=== PATIENT | male | born 1945 | race Caucasian/White ===

== ENCOUNTER 2019-12-18 12:55 | Inpatient (IN) | payer MEDICARE, MEDICAID, SELFPAY ==
[2019-12-18] VITALS (21 sets, daily range): BP systolic 89–180; BP diastolic 60–101; PULSE 73–94; RESP 0–18; TEMP 36.7–37.1; O2SAT 88–94; BMI 18.7
--- NOTE | 2019-12-18 12:55 | XRR_ITS ---
PROCEDURE INFORMATION: Exam: XR Chest, 1 View Exam date and time: 12/18/2019 1:21 PM Age: 74 years old Clinical indication: Other: Stroke like symptoms; Patient HX: PT unable to answer questions for history; Additional info: CVA TECHNIQUE: Imaging protocol: XR of the chest Views: Frontal portable supine view of the chest. COMPARISON: CR Chest 1 [place] [id number] 05/08/2019 9:33 AM FINDINGS: Tubes, catheters and devices: EKG leads are present overlying the right lower chest. Lungs: Left mid lung zone calcified pulmonary parenchymal granuloma. The lungs are otherwise peripherally clear bilaterally. Pleural space: No pleural effusion. No pneumothorax. Heart/Mediastinum: Mediastinum: Stable. 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 Bones/joints: Stable. XR/XR chest 1V portable [id number] IMPRESSION: Stable appearance compared to the prior study.
--- NOTE | 2019-12-18 12:56 | ECG_ITS ---
[facility] Test Date: 2019-12-18 Pat Name: Vicente Horta Department: Room: Gender: Male Practice Managers: : 1945 Requested By: She Gibbs Order Number: [id number] Kelsey MD: Jason Stoner M.D. Measurements Intervals [place] Rate: 83 P: 71 IA: 175 QRS: 70 QRSD: 94 T: 80 QT: 388 QTc: 458 Interpretive Statements SINUS RHYTHM NONSPECIFIC T-WAVE ABNORMALITY Compared to ECG 05/08/2019 09:33:28 No significant changes Electronically Signed On 12-19-2019 15:59:56 CDT by Jason Stoner M.D. [id number]
--- NOTE | 2019-12-18 12:56 | CT_ITS ---
WS: [id number] CT HEAD TECHNIQUE: Noncontrast CT of the head obtained from the skullbase to the vertex. CLINICAL INFORMATION: cva symptoms COMPARISON: None. DLP: 1573.[address] scans at [facility] use at least one of these dose optimization techniques: automat ed exposure control; mA and/or kV adjustment per patient size (includes targeted exams where dose is matched to clinical indication); or iterative reconstruction. FINDINGS: No evidence of intracranial hemorrhage or mass effect. Ventricular system and basal cisterns are swenson nt. Advanced small vessel changes with moderate parenchymal volume loss. Numerous chronic lacunar inf arcts in the right mullins radiata and bilateral thalami. Vascular calcification. Chronic lacunar infa rcts in the hector and left cerebellum. Paranasal sinuses and mastoid air cells are well aerated. .Normal visualized soft tissues. Notified She Flores at 12/18/2019 1:[address]/CT head wo con* [id number] IMPRESSION: 1. No evidence of intracranial hemorrhage or mass effect. 2. Advanced small vessel changes with moderate parenchymal volume loss. 3. Numerous chronic lacunar infarcts involving the bilateral mullins radiata, b ilateral thalami, and hector. 4. No acute intracranial findings.
--- NOTE | 2019-12-18 12:56 | CT_ITS ---
WS: [id number] CTA HEAD AND NECK TECHNIQUE: Contrast enhanced CTA of the head and neck with coronal and sagittal reformatted images an d maximum intensity projection (MIP) images. NASCET criteria utilized. CLINICAL INFORMATION: cva symptoms COMPARISON: None. DLP: 1582.[address] scans at [facility] use at least one of these dose optimization techniques: automat ed exposure control; mA and/or kV adjustment per patient size (includes targeted exams where dose is matched to clinical indication); or iterative reconstruction. FINDINGS: RIGHT: Right common carotid artery is patent. Mild calcified atheromatous disease right proximal ICA. No flow-limiting stenosis. ICA is patent to the skull base. Tortuous right cervical ICA. LEFT: Left common carotid artery is patent. Moderate calcified atheromatous disease left carotid bulb extending into the ICA. Left ICA is patent to the skull base. Chronic emphysematous changes in the lung apices. Thyroid gland is normal. Mastoid air cells well aer ated. Mild mucosal thickening in the paranasal sinuses. Mild cervical curve convex left. Moderate spo ndylitic changes cervical spine. INTRACRANIAL CTA: Codominant and patent vertebral arteries bilaterally. Basilar artery is patent. Normal vascularity to the PRESSURE TANK OPERATOR territory bilaterally. Mild cavernous carotid atheromatous disease. Normal vascularity to the TRISTIAN and MCA territories bilate rally. No evidence of high-grade proximal stenosis or aneurysm. Patent anterior communicating artery IMPRESSION: 1. Mild to moderate calcified atheromatous disease both carotid bulbs extending into the ICA. No sig nificant cervical ICA stenosis. 2. Unremarkable intracranial CTA. Normal [place]. No flow-limiting intracranial stenosis. 3. Codominant and patent vertebral arteries bilaterally. Proximal basilar artery is patent. 4. No other significant findings. Notified She Flores at 12/18/2019 2:41 PM.
[2019-12-18 13:18] LABS: Basophils % 0.4 %; Eosinophils # 0.4 10^3/uL (0.0-0.8); Eosinophils % 4.4 %; Hematocrit 41.8 % (42.0-52.0); Lymphocytes # 2.1 10^3/uL (0.8-4.8); Lymphocytes % 20.9 %; Mean Corpuscular HGB Conc 31.1 g/dL (30.0-36.0); Mean Corpuscular Hemoglobin 27.8 pg (28.0-34.0); Mean Corpuscular Volume 89.3 fL (80-94); Mean Platelet Volume 10.6 fL (7.4-10.4); Monocytes # 0.5 10^3/uL (0.2-0.9); Monocytes % 5.2 %; Neutrophils # 6.76 10^3/uL (1.8-7.7); Neutrophils % 68.8 %; Nucleated Red Blood Cells % 0 %; Platelet Count 197 10^3/cmm (130-400); Red Blood Count 4.68 10^6/uL (4.1-5.3); Red Cell Distribution Width 13.3 % (12.1-15.1); White Blood Count 9.8 10^3/uL (4.0-10.0)
--- NOTE | 2019-12-18 13:18 | W.ED.NEUROSD ---
HPI - Neuro Symptoms/Deficit General: Chief Complaint: Neuro Symptoms/Deficit Stated Complaint: STROKE ALERT Time Seen by Provider: 12/18/19 12:55 Source: patient, family and EMS Mode of arrival: EMS Limitations: altered mental status History of Present Illness: HPI Narrative: Mr. Horta is a 74-year-old male who was brought in as a stroke alert by [facility]. He was picked up at [facility] and brought here for evaluation. retirement stated to EMS and when we called them that he was seen at 1045 or sometime between 1045 and 11 in his normal state of health and then at 11 AM with difficulty speaking and right-sided facial droop. The patient is a difficult historian and examination secondary to his severe aphasia and chronic contractures from dementia. In route EMS notes a blood sugar of 85 and stable vital signs. The patient is unable to communicate any desires or help give any history. Information is taken from EMS, alf and his who is present here. Review of Systems General: Reports: ROS unobtainable due to medical condition (ROS believed to be negative other than as noted in HPI.) PFSH ED PFSH: Medical History AAA (abdominal aortic aneurysm) Alzheimer's dementia BPH (benign prostatic hyperplasia) CVA (cerebral vascular accident) Depression Dysphagia Hyperlipidemia Spinal stenosis TIA (transient ischemic attack) Surgical History Previous back surgery Family History Father Stroke Mother Stroke Social History Smoking and tobacco status: former smoker NIH stroke score NIHSS: Level Of Consciousness - 1a: 0 Level Of Consciousness Questions - 1b: One Correct Level Of Consciousness Commands - 1c: One Correct Best Gaze - 2: Normal Facial Palsy - 4: Minor Paralysis Motor Arm Right - 5: Drift Motor Arm Left - 5: Drift Sensory - 8: Normal Best Language - 9: Severe Aphasia Dysarthia - 10: Mild/Moderate Dysarthia Extinction And Inattention - 11: 0 Physical Exam Const: EXAM LIMITATIONS: altered mental status GENERAL APPEARANCE: ill appearing NUTRITIONAL APPEARANCE: cachectic and thin ORIENTATION/CONSCIOUSNESS: Yes awake and Yes oriented to person HENMT: COMMON NORMALS: normocephalic, atraumatic, external ears normal, EAC's normal and Normal external nose present HEAD & SCALP: normal to inspection, normocephalic and atraumatic FACE & SINUS: normal facial exam and face symmetric NOSE: Normal external nose present and Normal nares present EXTERNAL EAR: Yes external ears normal EXTERNAL AUDITORY CANAL: EAC's normal MOUTH: Normal oral and palatal mucosa present, lip normal and tongue normal Eye: COMMON NORMALS: Equal, round and reactive pupils present and conjunctivae normal GENERAL EYE: appearance normal, both eyes and all related structures ALIGNMENT: Yes alignment normal PERIORBITAL: periorbital findings normal EYELID: eyelids normal CONJUNCTIVA: Yes conjunctivae normal SCLERA: sclerae normal PUPIL: Yes Equal, round and reactive pupils present Neck/C-Spine: COMMON NORMALS: full ROM, no lymphadenopathy, supple, no meningeal signs and no JVD GENERAL: Yes normal visual inspection and Yes trachea midline Chest: COMMONS NORMALS: normal inspection of the chest and normal palpation of entire chest wall Resp: COMMON NORMALS: normal respiratory effort, No retractions and No use of accessory muscles EFFORT & INSPECTION: Yes able to speak in complete sentences and Yes symmetric chest movement AUSCULTATION: no crackles, no rales, rhonchi and no wheezes Cardio: COMMON NORMALS: no JVD, regular rate, regular rhythm, S1 normal heart sound present and S2 normal heart sound present RATE: regular rate RHYTHM: regular rhythm HEART SOUNDS: S1 normal heart sound present, S2 normal heart sound present, no click, no gallops, no murmurs, no rubs and abnormal split S2 GI: COMMON NORMALS: Soft to palpation and No hepatosplenomegaly present PALPATION: Yes Soft to palpation, No Tenderness to palpation present (GI), No Guarding due to palpation present (GI), No Rigid due to palpation, Yes No hepatosplenomegaly present, No Hernia present, No Palpable mass present and No Pulsatile mass present : COMMON NORMALS: Yes no CVA tenderness BLADDER/KIDNEY EXAM: Yes no CVA tenderness Back/Pelvis: COMMON NORMALS: no CVA tenderness, thoracic and lumbar spine normal to inspection, no thoracic nor lumbar tenderness and thoraco-lumbar ROM normal Extremity: COMMON NORMALS: capillary refill normal, no joint enlargement, no clubbing, cyanosis or edema and no calf tenderness NARRATIVE EXTREMITY EXAM: Bilateral flexion contractures at the hips and knees. Neuro: COMMON NORMALS: no sensory deficits noted SENSORIUM/ORIENTATION: Yes oriented to person MENINGEAL SIGNS: Yes no meningeal signs Skin: COMMON NORMALS: no rashes or lesions noted, turgor normal, no jaundice, no petechiae and no mottling GENERAL SKIN EXAM: no rashes or lesions noted and turgor normal Course ED course: 1326 -Case discussed with Dr. Jovel at [facility] he will evaluate the patient via telemedicine consult. 1339 -Case again discussed with Dr. Jovel and he agrees the patient is a difficult historian and examination but concurs that there is likely a stroke occurring and would like to start TPA. He agrees that the patient is likely not a interventional candidate secondary to his leg contractures and they will not be able to get access for intervention. He does believe a CTA head and neck though would be beneficial to help with prognosis. Vital Signs: Vital signs: Vital Signs Temperature 98.0 F 12/18/19 13:08 Pulse Rate 74 12/18/19 14:55 Respiratory Rate 13 12/18/19 14:55 Blood Pressure 128/79 12/18/19 14:55 Pulse Oximetry 93 12/18/19 14:55 MDM - Neuro Symptoms/Deficit MDM Narrative: Medical decision making narrative: Mr. Horta is a 74-year-old male who comes in with strokelike symptoms with at least a NIH stroke scale of 9. This was confirmed by Dr. Jovel, please see his note for details and his specific findings. He did recommend giving TPA and the wanted to proceed with this. The patient is not a interventional candidate. At this time the family wants to stay here even though they know it is more beneficial at this time to be transferred as we have no neurology coverage in-house and no neurosurgical coverage. Nonetheless they want to stay and be admitted here. I have reviewed this case in its entirety with Dr. Whitehead who is agreeable to admission. Further care will be dictated by him in the ICU. Departure -just prior to the patient going to the ICU he seemed improved with increased ability to speak. Overall his symptoms are not dramatically improved but he had made slight improvement. He denied any complaints of pain. Vital signs were stable. Lab Data: Attestation: I reviewed the patient's lab results. Labs: Lab Results 12/18/19 12/18/19 12/18/19 Range/Units 12:30 12:30 12:30 WBC 9.8 (4.0-10.0) 10^3/ uL RBC 4.68 (4.1-5.3) 10^6/u L Hgb 13.0 (11.7-16.6) g/dL Hct 41.8 L (42.0-52.0) % MCV 89.3 (80-94) fL MCH 27.8 L (28.0-34.0) pg MCHC 31.1 (30.0-36.0) g/dL RDW 13.3 (12.1-15.1) % Plt Count 197 (130-400) 10^3/c mm MPV 10.6 H (7.4-10.4) fL Neut % (Auto) 68.8 % Lymph % (Auto) 20.9 % [place] % (Auto) 5.2 % Eos % (Auto) 4.4 % Baso % (Auto) 0.4 % Neut # (Auto) 6.76 (1.8-7.7) 10^3/u L Lymph # (Auto) 2.1 (0.8-4.8) 10^3/u L [place] # (Auto) 0.5 (0.2-0.9) 10^3/u L Eos # (Auto) 0.4 (0.0-0.8) 10^3/u L Baso # (Auto) 0.0 (0.0-0.1) 10^3/u L Nucleated RBC % (a uto) 0 % Nucleated RBCs # 0.0 /100WBC PT Cancelled INR Cancelled APTT Cancelled Sodium 139 (136-145) mmol/L Potassium 3.5 (3.5-5.1) mmol/L Chloride 93 L (98-107) mmol/L Carbon Dioxide 34 H (22-29) mmol/L Anion Gap 15.5 (5-19) BUN 11 (8-23) mg/dL Creatinine 0.8 (0.7-1.2) mg/dL GFR Calculation Not Reportable Glucose 82 (65-115) mg/dL POC Glucose (70-110) mg/dL Calculated Osmolal ity 283 L (285-295) mOsm/k g Calcium 8.7 (8.5-10.5) mg/dL Magnesium 2.0 (1.7-2.3) mg/dL Total Bilirubin 0.4 (0.15-1.2) mg/dL AST 93 H (0-40) U/L ALT 13 (0-41) U/L Alkaline Phosphata se 49 (40-130) IU/L Troponin T Baselin e (0-15) ng/L Total Protein 6.9 (6.6-8.7) g/dL Albumin 3.8 (3.5-5.2) g/dL Globulin 3.1 (1.3-4.6) g/dL Urine Color (Yellow) Urine Appearance (CLEAR) Urine pH (5-7) Ur Specific Gravit y (1.005-1.030) Urine Protein (Negative) Urine Glucose (UA) (Normal) Urine Ketones (Negative) Urine Blood (Negative) Urine Nitrate (Negative) Urine Bilirubin (NEGATIVE) Urine Urobilinogen (Negative) mg/dL Ur Leukocyte Sandy ase (Negative) Urine RBC (0-2) /hpf Urine WBC (0-5) /hpf Ur Squamous Epith Cells (0-5) Amorphous Sediment Urine Bacteria (NONE) 12/18/19 12/18/19 12/18/19 Range/Units 12:30 13:16 13:32 WBC (4.0-10.0) 10^3/ uL RBC (4.1-5.3) 10^6/u L Hgb (11.7-16.6) g/dL Hct (42.0-52.0) % MCV (80-94) fL MCH (28.0-34.0) pg MCHC (30.0-36.0) g/dL RDW (12.1-15.1) % Plt Count (130-400) 10^3/c mm MPV (7.4-10.4) fL Neut % (Auto) % Lymph % (Auto) % [place] % (Auto) % Eos % (Auto) % Baso % (Auto) % Neut # (Auto) (1.8-7.7) 10^3/u L Lymph # (Auto) (0.8-4.8) 10^3/u L [place] # (Auto) (0.2-0.9) 10^3/u L Eos # (Auto) (0.0-0.8) 10^3/u L Baso # (Auto) (0.0-0.1) 10^3/u L Nucleated RBC % (a uto) % Nucleated RBCs # /100WBC PT 13.40 H INR 0.99 APTT 20.2 L Sodium (136-145) mmol/L Potassium (3.5-5.1) mmol/L Chloride (98-107) mmol/L Carbon Dioxide (22-29) mmol/L Anion Gap (5-19) BUN (8-23) mg/dL Creatinine (0.7-1.2) mg/dL GFR Calculation Glucose (65-115) mg/dL POC Glucose 76 (70-110) mg/dL Calculated Osmolal ity (285-295) mOsm/k g Calcium (8.5-10.5) mg/dL Magnesium (1.7-2.3) mg/dL Total Bilirubin (0.15-1.2) mg/dL AST (0-40) U/L ALT (0-41) U/L Alkaline Phosphata se (40-130) IU/L Troponin T Baselin e 33 H (0-15) ng/L Total Protein (6.6-8.7) g/dL Albumin (3.5-5.2) g/dL Globulin (1.3-4.6) g/dL Urine Color (Yellow) Urine Appearance (CLEAR) Urine pH (5-7) Ur Specific Gravit y (1.005-1.030) Urine Protein (Negative) Urine Glucose (UA) (Normal) Urine Ketones (Negative) Urine Blood (Negative) Urine Nitrate (Negative) Urine Bilirubin (NEGATIVE) Urine Urobilinogen (Negative) mg/dL Ur Leukocyte Sandy ase (Negative) Urine RBC (0-2) /hpf Urine WBC (0-5) /hpf Ur Squamous Epith Cells (0-5) Amorphous Sediment Urine Bacteria (NONE) 12/18/19 Range/Units 13:57 WBC (4.0-10.0) 10^3/ uL RBC (4.1-5.3) 10^6/u L Hgb (11.7-16.6) g/dL Hct (42.0-52.0) % MCV (80-94) fL MCH (28.0-34.0) pg MCHC (30.0-36.0) g/dL RDW (12.1-15.1) % Plt Count (130-400) 10^3/c mm MPV (7.4-10.4) fL Neut % (Auto) % Lymph % (Auto) % [place] % (Auto) % Eos % (Auto) % Baso % (Auto) % Neut # (Auto) (1.8-7.7) 10^3/u L Lymph # (Auto) (0.8-4.8) 10^3/u L [place] # (Auto) (0.2-0.9) 10^3/u L Eos # (Auto) (0.0-0.8) 10^3/u L Baso # (Auto) (0.0-0.1) 10^3/u L Nucleated RBC % (a uto) % Nucleated RBCs # /100WBC PT INR APTT Sodium (136-145) mmol/L Potassium (3.5-5.1) mmol/L Chloride (98-107) mmol/L Carbon Dioxide (22-29) mmol/L Anion Gap (5-19) BUN (8-23) mg/dL Creatinine (0.7-1.2) mg/dL GFR Calculation Glucose (65-115) mg/dL POC Glucose (70-110) mg/dL Calculated Osmolal ity (285-295) mOsm/k g Calcium (8.5-10.5) mg/dL Magnesium (1.7-2.3) mg/dL Total Bilirubin (0.15-1.2) mg/dL AST (0-40) U/L ALT (0-41) U/L Alkaline Phosphata se (40-130) IU/L Troponin T Baselin e (0-15) ng/L Total Protein (6.6-8.7) g/dL Albumin (3.5-5.2) g/dL Globulin (1.3-4.6) g/dL Urine Color [place] (Yellow) Urine Appearance Cloudy (CLEAR) Urine pH 8 H (5-7) Ur Specific Gravit y 1.010 (1.005-1.030) Urine Protein 1+ H (Negative) Urine Glucose (UA) Norm (Normal) Urine Ketones Negative (Negative) Urine Blood 2+ H (Negative) Urine Nitrate Positive H (Negative) Urine Bilirubin 1+ H (NEGATIVE) Urine Urobilinogen 4 H (Negative) mg/dL Ur Leukocyte Sandy ase 2+ H (Negative) Urine RBC 0-4 H (0-2) /hpf Urine WBC Too numerous to c nt H (0-5) /hpf Ur Squamous Epith Cells 0-4 H (0-5) Amorphous Sediment Not Reportable Urine Bacteria 1+ H (NONE) Imaging Data^: CT Head: Radiologist's impression: [address] [place] [address] CT Scan Report Signed Patient: Vicente Horta Unit #: [id number] : 1945 Age/Sex: 74 / M ADM Date: 12/18/19 Loc: ER Room/Bed: Attending Dr: Ordering Provider/Ordering MD: She Flores DO Date of Service: 12/18/19 Procedure(s): CT head wo con* [id number] Accession Number(s): [id number] Report Number: [id number] WS: [id number] CT HEAD TECHNIQUE: Noncontrast CT of the head obtained from the skullbase to the vertex. CLINICAL INFORMATION: cva symptoms COMPARISON: None. DLP: 1573.[address] scans at [facility] use at least one of these dose optimization techniques: automated exposure control; mA and/or kV adjustment per patient size (includes targeted exams where dose is matched to clinical indication); or iterative reconstruction. FINDINGS: No evidence of intracranial hemorrhage or mass effect. Ventricular system and basal cisterns are patent. Advanced small vessel changes with moderate parenchymal volume loss. Numerous chronic lacunar infarcts in the right mullins radiata and bilateral thalami. Vascular calcification. Chronic lacunar infarcts in the hector and left cerebellum. Paranasal sinuses and mastoid air cells are well aerated. .Normal visualized soft tissues. Notified She Flores at 12/18/2019 1:[address]/CT head wo con* [id number] IMPRESSION: 1. No evidence of intracranial hemorrhage or mass effect. 2. Advanced small vessel changes with moderate parenchymal volume loss. 3. Numerous chronic lacunar infarcts involving the bilateral mullins radiata, bilateral thalami, and hector. 4. No acute intracranial findings. Dictated By: Rahul Pond MD Signed By: Rahul Pond MD Signed Date/Time: 12/18/19 1321 DD/ 1310 CXR: My impression: No acute cardiopulmonary findings. EKG Data^: EKG 1: Attestation: I personally reviewed and interpreted this EKG as follows: EKG interpretation date: 12/18/19 EKG interpretation time: 13:14 Interpretation: Normal sinus rhythm at 85 beats a minute, nonspecific ST-T wave changes. Normal axis. No blocks, normal intervals. EKG 2: Attestation: I personally reviewed and interpreted this EKG as follows: EKG interpretation date: 12/18/19 EKG interpretation time: 15:00 Interpretation: Normal sinus rhythm at 84 beats a minute, no acute ST or T wave changes. Discharge Plan Discharge Patient Disposition: Admitted As Inpatient Admit Provider: Mark Espinosa Clinical Impression: Acute UTI Cerebrovascular accident Qualifiers: CVA mechanism: unspecified Qualified Code(s): I63.9 - Cerebral infarction, unspecified Condition: Stable Coding Level of Care Code ED Brick Baker for g Fwd Exam Comprehensive
[2019-12-18 13:21] LABS: Glucose Point of Care 76 mg/dL (70-110)
[2019-12-18 13:37] LABS: Alanine Aminotransferase 13 U/L (0-41); Albumin Level 3.8 g/dL (3.5-5.2); Alkaline Phosphatase 49 IU/L (40-130); Aspartate Amino Transferase 93 U/L (0-40); Blood Urea Nitrogen 11 mg/dL (8-23); Calcium 8.7 mg/dL (8.5-10.5); Carbon Dioxide 34 mmol/L (22-29); Chloride 93 mmol/L (98-107); Globulin 3.1 g/dL (1.3-4.6); Glucose 82 mg/dL (65-115); Osmolality Calculated 283 mOsm/kg (285-295); Sodium 139 mmol/L (136-145); Total Bilirubin 0.4 mg/dL (0.15-1.2); Total Protein 6.9 g/dL (6.6-8.7)
[2019-12-18 13:38] LABS: Troponin(5th) Baseline 33 ng/L (0-15)
[2019-12-18] MEDS: labetalol 5 mg/mL SDV 20mL 10 MG IVP (13:40)
[2019-12-18 13:42] LABS: Anion Gap 15.5 (5-19); Potassium 3.5 mmol/L (3.5-5.1)
--- NOTE | 2019-12-18 13:42 | PC.NURSE ---
blood glucose at 1316 was 76, ER doctor and stroke nurse were notified
[2019-12-18 13:58] LABS: INR 0.99 (0.8-1.2); Partial Thromboplastin Time 20.2 SECONDS (23.9-36.7)
[2019-12-18 14:11] LABS: Bilirubin Urine 1+ (NEGATIVE); Blood Urine 2+ (Negative); Glucose Urine UA Norm (Normal); Ketones Urine Negative (Negative); Leukocyte Esterase Urine 2+ (Negative); Nitrate Urine Positive (Negative); Protein Urine 1+ (Negative); Urine Appearance Cloudy (CLEAR); Urine Color Amber (Yellow); Urobilinogen Urine 4 mg/dL (Negative); pH Urine 8 (5-7)
[2019-12-18] MEDS: iohexol 350 mg/mL 100 mL Btl IV (14:12)
[2019-12-18 14:16] LABS: RBC Urine 0-4 /hpf (0-2)
[2019-12-18 14:17] LABS: Add Urine Culture? Yes; Bacteria Urine 1+; Squamous Epithelial Cell Urine 0-4 (0-5); WBC Urine TOO NUMEROUS TO CNT /hpf (0-5)
--- NOTE | 2019-12-18 14:32 | PC.NURSE ---
TPA Patient and agree to receive TPA at 1340. Dr. Flores explained all risks and benefits with patient and .
--- NOTE | 2019-12-18 14:38 | PC.NURSE ---
NIHSS Patient scores 9, chronic bilateral leg contracture noted and not scored.
--- NOTE | 2019-12-18 14:41 | PC.NURSE ---
Stroke EDU Patient and educated on stroke, risk factors, goals, TPA, CT/CTA. and also wish [place] [facility] [place] Flores explained risks of staying [place] [facility] [place] or inhouse neurology. gives verbal understanding.
--- NOTE | 2019-12-18 14:56 | ECG_ITS ---
[facility] Test Date: 2019-12-18 Pat Name: Vicente Horta Department: Room: ICU11 Gender: Male Safety Analyst: : 1945 Requested By: She Gibbs Order Number: [id number] Kelsey MD: Jason Stoner M.D. Measurements Intervals [place] Rate: 84 P: 77 NM: 183 QRS: 69 QRSD: 89 T: 82 QT: 390 QTc: 462 Interpretive Statements SINUS RHYTHM NONSPECIFIC ST & T-WAVE ABNORMALITY Compared to ECG 12/18/2019 13:14:26 No significant changes Electronically Signed On 12-19-2019 16:11:15 CDT by Jason Stoner M.D. [email or web address]
[2019-12-18] MEDS: cefTRIAXone 1,000 MG in sodium chloride 0.9% (plus) 50 ML 100 MG IV (15:08)
[2019-12-18 15:36] LABS: Troponin 5 2HR 33.99 ng/L (0-15); Troponin 5 2HR Delta 0.99 ABS# (0-10)
--- NOTE | 2019-12-18 16:24 | PM.HP ---
Providers/Chief Complaint Admitting Physician: Mark Espinosa Chief Complaint: STROKE ALERT History of Present Illness Vicente Horta is a 74 year old gentleman, senior living resident with history of dementia, history of past CVA, reports as recently as last August, with for CVA 10-11 years ago, also history of single seizure probably about February last year treated with Keppra, without recurrence, with history of HTN, BPH, other chronic medical problems, was noted around 11 AM to have severe dysarthria, right facial droop, aphasia, with last known well around 1045. He was assessed in ER with finding of NIH stroke scale score of 9, was assessed by stroke team, without any bleed on CT of the head, but with noted numerous chronic lacunar infarcts involving bilateral mullins radiata, bilateral thalami and hector, his was interested in pursuing treatment with TPA. CTA head and neck were obtained, with finding of mild to moderate calcified atheromatous disease of both carotid bulbs extending into the ICA. No significant ICA stenosis. Unremarkable intracranial CTA. He is currently awake, alert after TPA, blood pressure was transiently elevated, however, during our visit was down to 139/85. He denies any pain at this time. When asked if he knows why he is in the hospital states the same thing . After TPA he has persistent right facial droop. Dysarthria. A aphasia. He does not follow commands well, and so difficult to examine. He is moving all extremities spontaneously. Power otherwise in upper and lower extremities appears to be symmetrical. He denies sensory deficits. He appears to perhaps have some neglect, although this is difficult to examine. He does know he is in the hospital. He does not recall the year. He does recognize his . His states that he is at baseline bed or wheelchair bound. States that he may or may not know the date. States that he has had some a aphasia chronically, although this is significantly worse than usual. He needs usually assistance with feeding. She states that he does take some dysphagia diet at the senior living. Review of Systems General: Reports: ROS unobtainable due to medical condition Medications/Allergies Home Medications Medication Instructions Recorded Confirmed Last Taken Type Med Plus See Rx Instructions .ROUTE .COMPLEX 12/18/19 12/18/19 Unknown History Pyridium 1 tab PO BID 12/18/19 12/18/19 Unknown History acetaminophen [Tylenol Arthritis 1,300 mg PO BEDTIME 12/18/19 12/18/19 Unknown History Pain] acetaminophen [Tylenol] 650 mg PO Q4H PRN 12/18/19 12/18/19 Unknown History aspirin [Aspir-81] 81 mg PO DAILY 12/18/19 12/18/19 Unknown History bisacodyl 10 mg MT DAILY PRN 12/18/19 12/18/19 Unknown History clonidine 1 patch TRANSDERMAL Q7D 12/18/19 12/18/19 Unknown History cyproheptadine 2 mg PO BID 12/18/19 12/18/19 Unknown History levetiracetam [Keppra] 500 mg PO BID 12/18/19 12/18/19 Unknown History magnesium hydroxide [Milk of 30 ml PO DAILY PRN 12/18/19 12/18/19 Unknown History Magnesia] memantine 5 mg PO DAILY 12/18/19 12/18/19 Unknown History methocarbamol 750 mg PO BID 12/18/19 12/18/19 Unknown History sertraline 100 mg PO QAM 12/18/19 12/18/19 Unknown History tamsulosin [Flomax] 0.4 mg PO DAILY 12/18/19 12/18/19 Unknown History Allergies Allergy/AdvReac Type Severity Reaction Status Date / Time galantamine Allergy Unknown Verified 12/18/19 14:59 PFSH Acute PFSH: Medical History AAA (abdominal aortic aneurysm) Alzheimer's dementia BPH (benign prostatic hyperplasia) CVA (cerebral vascular accident) Depression Dysphagia Hyperlipidemia Spinal stenosis TIA (transient ischemic attack) Surgical History Previous back surgery Family History Father Stroke Mother Stroke Social History Smoking and tobacco status: former smoker Vitals/I&O/Wt Last Vital Signs Temp 98.0 F 12/18/19 13:08 Pulse 74 12/18/19 14:55 Resp 13 12/18/19 14:55 BP 128/79 12/18/19 14:55 Pulse Ox 93 12/18/19 14:55 12/18/19 12/18/19 12/18/19 06:59 14:59 22:59 Intake Total 100 / 100 Balance 100 / 100 Weight last 48 hrs Weight 62.596 kg Physical Exam Const: COMMON NORMALS: no acute distress and alert; negative for patient oriented x3 ORIENTATION/CONSCIOUSNESS: Yes oriented to person and Yes oriented to place HENMT: COMMON NORMALS: oropharynx normal Neck/C-Spine: COMMON NORMALS: no JVD Resp: COMMON NORMALS: normal respiratory effort and clear to auscultation bilaterally AUSCULTATION: clear to auscultation bilaterally and rhonchi Cardio: COMMON NORMALS: no JVD, regular rhythm, S1 normal heart sound present, S2 normal heart sound present and No murmurs present (Cardio) RHYTHM: regular rhythm HEART SOUNDS: S1 normal heart sound present and S2 normal heart sound present GI: COMMON NORMALS: Normal to inspection, nondistended, normoactive bowel sounds present, Soft to palpation and non-tender PALPATION: Yes Soft to palpation Extremity: COMMON NORMALS: no joint enlargement and no pedal edema Neuro: COMMON NORMALS: moves all extremities SENSORIUM/ORIENTATION: Yes alert (Takes him a long time to comprehend and answer questions.) MENINGEAL SIGNS: Yes no meningeal signs CRANIAL NERVES: Yes other (R side facial droop ) COORDINATION/BALANCE: No wvzzrj-bw-buiv test normal (poorly following commands) SPEECH: abnormal speech Details: slurred and stuttering GAIT: Yes Unable to assess gait SENSORY EXAM: Yes other (reports symmetrical) MOTOR EXAM: Other motor observations present (3/5 throughout) Skin: COMMON NORMALS: no rashes or lesions noted GENERAL SKIN EXAM: no rashes or lesions noted OTHER: 2cm shallow skin tear L hip covered by tegaderm Data : 12/18/19 12:30 12/18/19 12:30 A&P Assessment and plan (1) Cerebrovascular accident: Multiple past lacunar CVA in bilateral mullins radiata, bilateral thalami, hector. He is at baseline aspirin. Not manager contact for medicine. Has history of hypertension. denies history of diabetes. History of CVA in both his parents. CT of the head without bleed. Received TPA. Admission requested to our ICU. Will monitor blood pressure. At this time hold aspirin. We will start statin. He does have significant facial droop, dysarthria, and is having some difficult time clearing secretions, although does cough them up when he tries. Prescription with his , at the senior living he has been maintained on dysphagia diet. Discussed that difficulty with swallowing, and risk of aspiration would be big concerns currently. Will maintain him n.p.o. at this time. Will get speech therapy assessment. reports that the facial droop, as well as the severity of aphasia are new. Dysarthria is new. Appears to also have disconjugate gaze, and closing the right eye. Once she is able to start antiplatelets, would resume aspirin, consider addition of Plavix. Statin. CTA without significant carotid stenosis, but does have bilateral plaques in carotid bulbs. Monitor telemetry. TTE. Status: Acute Qualifiers: CVA mechanism: unspecified Qualified Code(s): I63.9 - Cerebral infarction, unspecified (2) Acute UTI: According to urinalysis. He is not able to give a good review of systems. At this time started on antibiotic. Follow urine culture which is been collected. Status: Acute Additional A&P Information History of seizure: Continue Keppra, will transition to IV. Other chronic medical conditions: For now we will hold his oral medications until he can be assessed by speech therapy. Bedbound/wheelchair bound at baseline Chronic aphasia HTN HLD Reported AAA BPH Depression Attestations Medical Necessity Statement*: Admission of over 2 midnights is been needed for assessment of management of acute CVA, status post TPA, UTI, initial man with prior CVA, multiple underlying morbidities. Coding Level of Care Code Acute Geosciences Associate Professor for Douglas Marcelino Diagnoses Cerebrovascular accident I63.9 CVA mechanism: unspecified Acute UTI N39.0
[2019-12-18 18:01] LABS: Estmated Average Glucose 120; Hemoglobin A1C 5.8 % (4.0-6.0)
[2019-12-18] MEDS: sodium chloride 0.9% 1,000 ML 75 ML IV (18:21)
--- NOTE | 2019-12-18 18:33 | PC.NURSE ---
unable to communicate very well. diffcult to do nihhss. follows with eyes and wafer fabrication operator
--- NOTE | 2019-12-18 18:56 | ECG_ITS ---
[facility] Test Date: 2019-12-18 Pat Name: Vicente Horta Department: Room: ICU11 Gender: Male Bulldozer/Loader/Compactor/Scraper: : 1945 Requested By: She Gibbs Order Number: [id number] Kelsey MD: Jason Stoner M.D. Measurements Intervals Gering Rate: 85 P: 50 SC: 182 QRS: 48 QRSD: 90 T: 78 QT: 387 QTc: 460 Interpretive Statements SINUS RHYTHM NONSPECIFIC T-WAVE ABNORMALITY Compared to ECG 12/18/2019 15:00:56 No significant changes Electronically Signed On 12-19-2019 16:14:55 CDT by Jason Stoner M.D. [email or web address]
[2019-12-18 20:07] LABS: Troponin 5 6HR 34.24 ng/L (0-15); Troponin 5 6HR Delta 1.24 ng/L (0-12)
[2019-12-19] VITALS (36 sets, daily range): BP systolic 91–164; BP diastolic 56–107; PULSE 71–93; RESP 5–27; TEMP 37.1–37.3; O2SAT 92–100; BMI 19.0
[2019-12-19 04:29] LABS: Basophils % 0.4 %; Eosinophils # 0.3 10^3/uL (0.0-0.8); Eosinophils % 2.7 %; Hematocrit 36.3 % (42.0-52.0); Hemoglobin 11.1 g/dL (11.7-16.6); Lymphocytes # 1.8 10^3/uL (0.8-4.8); Lymphocytes % 17.2 %; Mean Corpuscular HGB Conc 30.6 g/dL (30.0-36.0); Mean Corpuscular Hemoglobin 27.2 pg (28.0-34.0); Mean Platelet Volume 9.6 fL (7.4-10.4); Monocytes # 0.7 10^3/uL (0.2-0.9); Monocytes % 6.9 %; Neutrophils # 7.38 10^3/uL (1.8-7.7); Neutrophils % 72.5 %; Nucleated Red Blood Cells % 0 %; Platelet Count 213 10^3/cmm (130-400); Red Blood Count 4.08 10^6/uL (4.1-5.3); Red Cell Distribution Width 13.5 % (12.1-15.1); White Blood Count 10.2 10^3/uL (4.0-10.0)
[2019-12-19 04:46] LABS: Anion Gap 12.3 (5-19); Blood Urea Nitrogen 11 mg/dL (8-23); Carbon Dioxide 33 mmol/L (22-29); Chloride 97 mmol/L (98-107); Glucose 95 mg/dL (65-115); Osmolality Calculated 284 mOsm/kg (285-295); Potassium 3.3 mmol/L (3.5-5.1); Sodium 139 mmol/L (136-145)
[2019-12-19] MEDS: sodium chloride 0.9% 1,000 ML 75 ML IV ×2 (05:09→18:28)
--- NOTE | 2019-12-19 07:00 | USCV_ITS ---
Vicente Horta Age: 74 Gender: M : 1945 Exam Date: 12/19/2019 06:21 Ordering Phys: Mark Espinosa MD Technologist: Scar Vasquez [place] [facility] [place]: CVA BP: 105 / 60 HR: 87 Rhythm: Sinus Technical Quality: Technically difficult study MEASUREMENTS (Male / Female) Normal Values 2D ECHO LV Ejection Fraction MOD 2C 46.9 % LV Ejection Fraction 2C AL 46.2 % LA Diameter 3.6 cm LA Width 3.1 cm LA Height 3.3 cm RA Width 2.9 cm RA Height 3.2 cm M-MODE LV Diastolic Diameter MM 5.3 cm 4.2 - 5.9 / 3.9 - 5.3 cm LV Systolic Diameter MM 3.8 cm LV Ejection Fraction MM Teich 55.6 % IVS Diastolic Thickness MM 1.5 cm 0.6 - 1.0 / 0.6 - 0.9 cm IVS Systolic Thickness MM 1.8 cm LVPW Diastolic Thickness MM 1.5 cm 0.6 - 1.0 / 0.6 - 0.9 cm LVPW Systolic Thickness MM 2.0 cm RV Diastolic Diameter MM 1.8 cm Aortic Annulus Diameter 3.8 cm LA Ao Ratio MM 1.0 MV E Point Septal Separation 0.6 cm DOPPLER AV Peak Velocity 106.0 cm/s LVOT Peak Velocity 93.0 cm/s MV Area PHT 5.0 cm squared Mitral E to A Ratio 0.7 MV E' Velocity 11.0 cm/s Mitral E to MV E' Ratio 6.8 Mitral E to LV E' Lateral Ratio 5.8 Mitral E to LV E' Septal Ratio 8.3 TR Peak Velocity 196.0 cm/s TR Peak Gradient 15.3 mmHg Right Atrial Pressure 3.0 mmHg Pulmonary Artery Systolic Pressu 18.4 mmHg FINDINGS Left Ventricle Mild diffuse hypokinesia of the left ventricle with ejection fraction of 47%.Grade I/IV diastolic dysfunction (abnormal relaxation filling pattern), normal to mildly elevated filling pressures. Technically difficult study-no parasternal windows Right Ventricle The right ventricle is normal in size and function. Right Atrium The right atrium is normal in size. Left Atrium The left atrium is normal in size. Mitral Valve Thickened mitral valve. Aortic Valve Thickened aortic valve. Tricuspid Valve Thickened tricuspid valve. Trace tricuspid valve regurgitation. Pulmonic Valve Pulmonic valve not well visualized. Pericardium Trivial pericardial effusion. Aorta Normal ascending aorta dimension. CONCLUSIONS Mild diffuse hypokinesia of the left ventricle with ejection fraction of 47%. Grade I/IV diastolic dysfunction (abnormal relaxation filling pattern), normal to mildly elevated filling pressures. Thickened aortic and mitral valves. Thickened tricuspid valve. Trace tricuspid valve regurgitation. Technically difficult study. No parasternal windows. No previous studies available for comparison Dr Husam Giron MD FACC (Electronically Signed) Final Date: 19 December 2019 18:53 S
[2019-12-19] MEDS: sodium chloride 0.9% 250 ML 999 ML IV (08:00)
--- NOTE | 2019-12-19 08:47 | PM.PN ---
Subjective Subjective: Interval history: Today he is less responsive, he wakes up easily, raises his head, makes eye contact, however, does not appear to understand what is spoken to him, does not answer questions or follow commands. Does not appear in distress. Vitals/I&O/Wt Last Vital Signs Temp 98.8 F 12/18/19 21:57 Pulse 78 12/19/19 07:51 Resp 16 12/19/19 04:30 BP 100/61 12/19/19 04:30 Pulse Ox 96 12/19/19 07:51 12/18/19 12/19/19 12/19/19 22:59 06:59 14:59 Intake Total 105 / 205 810 / 1015 Balance 105 / 205 810 / 1015 Weight last 48 hrs Weight 63.503 kg Weight 62.596 kg Physical Exam Const: COMMON NORMALS: no acute distress and alert GENERAL APPEARANCE: frail appearing ORIENTATION/CONSCIOUSNESS: Yes confused HENMT: COMMON NORMALS: oropharynx normal Neck/C-Spine: COMMON NORMALS: no meningeal signs and no JVD Resp: COMMON NORMALS: normal respiratory effort and clear to auscultation bilaterally AUSCULTATION: clear to auscultation bilaterally and rhonchi Cardio: COMMON NORMALS: no JVD, regular rhythm, S1 normal heart sound present, S2 normal heart sound present and No murmurs present (Cardio) RHYTHM: regular rhythm HEART SOUNDS: S1 normal heart sound present and S2 normal heart sound present GI: COMMON NORMALS: Normal to inspection, nondistended, normoactive bowel sounds present, Soft to palpation and non-tender PALPATION: Yes Soft to palpation Extremity: COMMON NORMALS: no joint enlargement and no pedal edema Neuro: COMMON NORMALS: moves all extremities SENSORIUM/ORIENTATION: Yes alert MENINGEAL SIGNS: Yes no meningeal signs CRANIAL NERVES: Yes other (R side facial droop ) SPEECH: abnormal speech Details: complete aphasia (Although appears completely confused, so difficult to assess) GAIT: Yes Unable to assess gait SENSORY EXAM: Yes other (He did not provide any information today) MOTOR EXAM: Other motor observations present (Cannot get him to follow commands today) Skin: COMMON NORMALS: no rashes or lesions noted GENERAL SKIN EXAM: no rashes or lesions noted OTHER: Shallow wounds on bilateral hips Data : 12/19/19 04:10 12/19/19 04:10 Micro: Microbiology 12/18/19 13:57 Urine Culture - Preliminary Urine,Clean Catch Gram Negative Rods A&P Assessment and plan (1) Cerebrovascular accident: This morning he wakes up, but is not responsive to questions, commands. Appears to be making eye contact, but otherwise confused. Suspect possible acute encephalopathy secondary to urinary tract infection. At this time cannot exclude some worsening symptoms secondary to his CVA. Definitely less animated than yesterday. This is reported how he has remained after arriving in the ICU. Overnight has not been hypertensive, blood pressures more in the soft side today. Continues on gentle IV hydration. Given his fall 250 mill normal saline bolus. At this time will continue n.p.o. Continue to reassess mental status, as well as if improves needs speech therapy assessment. Continue care in ICU for now. Reassessments. Later tonight may be will to initiate antiplatelet medication HI. For now cannot take any other oral medications. Multiple past lacunar CVA in bilateral mullins radiata, bilateral thalami, hector. He is at baseline aspirin. Not investigation division captain for medicine. Has history of hypertension. denies history of diabetes. History of CVA in both his parents. I do not see atrial fibrillation on his grip wrapper. Discussed with his concern is possibly for small atheroemboli. Once she is able to start antiplatelets, would resume aspirin, consider addition of Plavix. Statin. CTA without significant carotid stenosis, but does have bilateral plaques in carotid bulbs. Not a surgical candidate. Monitor telemetry. TTE. Status: Acute Qualifiers: CVA mechanism: unspecified Qualified Code(s): I63.9 - Cerebral infarction, unspecified (2) Acute UTI: According to urinalysis. He is not able to give a good review of systems. For now continues on Rocephin. Follow urine culture which is been collected. Status: Acute Additional A&P Information Hypokalemia: Mild. Requested replacement. History of seizure: Continue Keppra, transitioned to IV for the time being. Other chronic medical conditions: For now we will hold his oral medications until he can be assessed by speech therapy. Bedbound/wheelchair bound at baseline Chronic aphasia HTN HLD Reported AAA BPH Depression Attestations Medical Necessity Statement*: Continue admission for assessment management of acute CVA, UTI. Coding Level of Care Code Acute Senior Contract Specialist for Douglas Marcelino Diagnoses Cerebrovascular accident I63.9 CVA mechanism: unspecified Acute UTI N39.0
[2019-12-19] MEDS: potassium chloride premix 40 MEQ/100 ML PREMIX 25 MEQ IV (09:32)
--- NOTE | 2019-12-19 10:06 | PC.CHAP ---
Pastoral Care Encounter/Spiritual Assessment Type of Contact [] Declined spring upholsterer visit [] Patient/Family/Request visit [] Outpatient visit [] Follow-up visit [] Physician referral [] Code/Alert [x] Routine visit [] Staff referral [] Actively dying [] Patient sleeping [] Family support [] [] Out of room [] Palliative care [] [] Receiving care in room [] Pre-surgical visit [] Trauma [] Long length of stay [] ICU visit [] Other: Relational/Emotional Strength [] Patient feels connected with others/family/visitors/staff [] Distress [] Loneliness/isolation [] Abandonment Spirituality of Patient [] Person of Stefanie [] Attends Restorationism of their Stefanie [] Believes in Prayer [] Reads Bible or Hindu materials [] There are Spiritual issues to be addressed Pantograph Ii Engraver Interventions [x] Prayer [] Active listening [x] Non-anxious presence [x] Spiritual/emotional support [] Crisis/trauma care [] Spiritual counseling [] Bereavement support [] Provided bereavement packet [] Provided Bible/devotional materials [] Provided toy/stuffed animal, coloring book to patient or family member [] Provided Communion [] Anointing/[place] [] Salvation [x] Completed spiritual assessment [] Other: Impact on Illness or Injury [] Angry [] Fearful [] Anxious [] Often cries [] Exhaustion [] Unable to work [] Unable to attend restoration [] Unable to walk/stand [] Unable to read [] Unable to drive [] Unable to eat/drink [] Unable to sleep [] Unable to be with family [] Patient intubated [] Other: Summary Patient unable to speak, or respond. We prayed together and he knew with his eyes. Time spent with patient 10 min
--- NOTE | 2019-12-19 14:49 | PC.NURSE ---
turns head to verbal stimuli, attempts to loop sewer with BUE weak in both slight stronger in LUE but unable to fully grasp with both, can whisper yes and no at times, shakes head yes and no
[2019-12-19] MEDS: cefTRIAXone 1,000 MG in sodium chloride 0.9% (plus) 50 ML 100 MG IV (15:03)
--- NOTE | 2019-12-19 17:46 | CTR_ITS ---
PROCEDURE INFORMATION: Exam: CT Head Without Contrast Exam date and time: 12/19/2019 5:49 PM Age: 74 years old Clinical indication: Speech disturbance; Unspecified; Patient HX: S/P tpa HX of CVA and alzheimers; Additional info: CVA, tpa TECHNIQUE: Imaging protocol: Computed tomography of the head without contrast. Radiation optimization: All CT scans at this facility use at least one of these dose optimization techniques: automated exposure control; mA and/or kV adjustment per patient size (includes targeted exams where dose is matched to clinical indication); or iterative reconstruction. COMPARISON: CT head wo con* [id number] 12/18/2019 12:53 PM RADIATION DOSE METRICS: Total DLP (mGy-cm): 754.91 FINDINGS: Brain: There is volume loss and periventricular low density compatible with chronic small vessel disease changes. There is no acute hemorrhage, edema or mass effect. Basal ganglia lacunar infarcts are noted. Ventricles: Normal. No ventriculomegaly. Bones/joints: Unremarkable. No acute fracture. Sinuses: There is mild mucosal thickening in the sinuses. Mastoid air cells: Visualized mastoid air cells are well aerated. Soft tissues: Unremarkable. CT/CT head wo con* [id number] IMPRESSION: No acute intracranial abnormality. Radiation Dose CTDIVOL = (mGy): DLP = 754.91 (mGy-cm)
--- NOTE | 2019-12-19 21:14 | PC.NURSE ---
report called to Carmen on med surg floor
[2019-12-19] MEDS: clopidogrel 75 mg Tablet PO (22:30)
[2019-12-19] MEDS: atorvastatin 40 mg Tablet PO (22:30)
[2019-12-19] MEDS: aspirin 81 mg Chew Tablet 162 MG PO (22:30)
[2019-12-20] VITALS (7 sets, daily range): BP systolic 115–159; BP diastolic 70–88; PULSE 67–88; RESP 15–18; TEMP 36.4–37; O2SAT 93–99
[2019-12-20 04:51] LABS: Basophils % 0.5 %; Eosinophils # 0.4 10^3/uL (0.0-0.8); Eosinophils % 4.5 %; Hematocrit 34.2 % (42.0-52.0); Hemoglobin 10.6 g/dL (11.7-16.6); Mean Corpuscular Hemoglobin 27.8 pg (28.0-34.0); Mean Corpuscular Volume 89.8 fL (80-94); Mean Platelet Volume 10.3 fL (7.4-10.4); Monocytes # 0.6 10^3/uL (0.2-0.9); Monocytes % 6.9 %; Neutrophils # 5.34 10^3/uL (1.8-7.7); Neutrophils % 63.9 %; Nucleated Red Blood Cells % 0 %; Platelet Count 212 10^3/cmm (130-400); Red Blood Count 3.81 10^6/uL (4.1-5.3); Red Cell Distribution Width 13.6 % (12.1-15.1); White Blood Count 8.4 10^3/uL (4.0-10.0)
[2019-12-20 05:11] LABS: Blood Urea Nitrogen 12 mg/dL (8-23); Calcium 8.7 mg/dL (8.5-10.5); Carbon Dioxide 30 mmol/L (22-29); Chloride 103 mmol/L (98-107); Glucose 78 mg/dL (65-115); Osmolality Calculated 289 mOsm/kg (285-295); Sodium 142 mmol/L (136-145)
[2019-12-20 05:17] LABS: Anion Gap 13.2 (5-19); Potassium 4.2 mmol/L (3.5-5.1)
[2019-12-20] MEDS: sodium chloride 0.9% 1,000 ML 75 ML IV ×2 (10:40→22:05)
[2019-12-20] MEDS: cefTRIAXone 1,000 MG in sodium chloride 0.9% (plus) 50 ML 100 MG IV (12:53)
--- NOTE | 2019-12-20 18:15 | P.PN_ITS ---
Subjective Subjective: Interval history: When asked if he is doing okay shakes his head no. When asked if he is in pain replies no. Tries to speak, saying what sounds like he is feeling weak, when asked if that is what he says confirms yes. It takes him some time, but does follow commands. Vitals/I&O/Wt Last Vital Signs Temp 97.7 F 12/20/19 15:27 Pulse 77 12/20/19 15:27 Resp 18 12/20/19 15:27 BP 159/88 12/20/19 15:27 Pulse Ox 97 12/20/19 15:27 12/20/19 12/20/19 12/20/19 06:59 14:59 22:59 Intake Total 105 / 1608.75 1100 / 1100 240 / 1340 Output Total 2 / 2 Balance 105 / 1608.75 1098 / 1098 240 / 1338 Weight last 48 hrs Weight 62.505 kg Weight 63.503 kg Physical Exam Const: COMMON NORMALS: no acute distress and alert GENERAL APPEARANCE: frail appearing ORIENTATION/CONSCIOUSNESS: Yes Other orientation findings (Answers few simple questions, although with delay. Follows some simple commands. This appears to be worse than his baseline dementia.) HENMT: COMMON NORMALS: oropharynx normal HEAD & SCALP: other (Facial droop) Neck/C-Spine: COMMON NORMALS: no meningeal signs and no JVD Resp: COMMON NORMALS: normal respiratory effort and clear to auscultation bilaterally AUSCULTATION: clear to auscultation bilaterally and rhonchi Cardio: COMMON NORMALS: no JVD, regular rhythm, S1 normal heart sound present, S2 normal heart sound present and No murmurs present (Cardio) RHYTHM: regular rhythm HEART SOUNDS: S1 normal heart sound present and S2 normal heart sound present GI: COMMON NORMALS: Normal to inspection, nondistended, normoactive bowel sounds present, Soft to palpation and non-tender PALPATION: Yes Soft to palpation Extremity: COMMON NORMALS: no joint enlargement and no pedal edema Neuro: COMMON NORMALS: moves all extremities SENSORIUM/ORIENTATION: Yes alert MENINGEAL SIGNS: Yes no meningeal signs CRANIAL NERVES: Yes other (R side facial droop ) COORDINATION/BALANCE: No [id number] test normal (poorly following commands) SPEECH: abnormal speech Details: garbled and slurred GAIT: Yes Unable to assess gait SENSORY EXAM: Yes other (He did not participate well enough for this exam.) MOTOR EXAM: Other motor observations present (He is generally weak, but did make effort against gravity with his arms. Moved his feet.) COORDINATION: llnabt-wg-eray test abnormal (poorly following commands) Skin: COMMON NORMALS: no rashes or lesions noted GENERAL SKIN EXAM: no rashes or lesions noted OTHER: Shallow wounds on bilateral hips Data : 12/20/19 04:27 12/20/19 04:27 Micro: Microbiology 12/18/19 13:57 Urine Culture - Preliminary Urine Catheterized Gram Negative Rods 12/18/19 13:57 Urine Culture - Final Urine,Clean Catch Proteus mirabilis A&P Assessment and plan (1) Cerebrovascular accident: Yesterday his condition was worse, today he is somewhat more alert, and yesterday actually by the evening did better, so much so that he was able to advance to pur?ed, nectar thick liquids diet. Today did somewhat better, is very slow and eating, but did consume some mashed potatoes, pur?ed meat, grape juice. Did well with any thick liquids. Remains an elevated risk of aspiration. We will add some nutritional shakes due to concern he may not sustain his nutr itional needs. CT of the head repeated last night, started on aspirin. Plavix. Statin due to concern for atheroemboli due to plaque. He is not a candidate for vascular surgery. So far have not seen atrial fibrillation. If mental has remained stable, and oral intake continue, may be able to discharge to longterm. Neck audiogram with EF of about 47%. Does not appear to have significant valv ular abnormality. With the degree of dysphagia, and mental status changes I am not sure that SUN would be a safe test to perform this time. May be considered on follow-up with neurology in office with regards to further evaluation/work- up. Status: Acute Qualifiers: CVA mechanism: unspecified Qualified Code(s): I63.9 - Cerebral i nfarction, unspecified (2) Acute UTI: Proteus mirabilis. Continue Rocephin. Status: Acute Additional A&P Information Hypokalemia: Mild. Requested replacement. History of seizure: Continue Keppra, transitioned to IV for the time being. Other chronic medical conditions: For now we will hold his oral medications until he can be assessed by speech therapy. Bedbound/wheelchair bound at baseline Chronic aphasia HTN HLD Reported AAA BPH Depression Attestations Medical Necessity Statement*: Continue admission for assessment management of acute CVA with severe dysphagia. UTI. Disposition planning. Coding Level of Care Code Acute Deposition Operator for Douglas Marcelino Diagnoses Cerebrovascular accident I63.9 CVA mechanism: unspecified Acute UTI N39.0
[2019-12-20] MEDS: aspirin 81 mg Chew Tablet 162 MG PO (21:53)
[2019-12-20] MEDS: atorvastatin 40 mg Tablet PO (21:54)
[2019-12-20] MEDS: clopidogrel 75 mg Tablet PO (21:54)
[2019-12-21] VITALS (8 sets, daily range): BP systolic 130–177; BP diastolic 72–119; PULSE 73–128; RESP 15–20; TEMP 36.6–37.2; O2SAT 92–97
[2019-12-21 03:57] LABS: Basophils % 0.5 %; Eosinophils # 0.4 10^3/uL (0.0-0.8); Eosinophils % 5.3 %; Hematocrit 35.4 % (42.0-52.0); Lymphocytes # 1.9 10^3/uL (0.8-4.8); Lymphocytes % 24.2 %; Mean Corpuscular HGB Conc 31.1 g/dL (30.0-36.0); Mean Corpuscular Hemoglobin 28.1 pg (28.0-34.0); Mean Corpuscular Volume 90.5 fL (80-94); Mean Platelet Volume 9.7 fL (7.4-10.4); Monocytes # 0.6 10^3/uL (0.2-0.9); Monocytes % 7.5 %; Neutrophils # 4.92 10^3/uL (1.8-7.7); Neutrophils % 62.2 %; Nucleated Red Blood Cells % 0 %; Platelet Count 212 10^3/cmm (130-400); Red Blood Count 3.91 10^6/uL (4.1-5.3); Red Cell Distribution Width 13.3 % (12.1-15.1); White Blood Count 7.9 10^3/uL (4.0-10.0)
[2019-12-21 04:16] LABS: Anion Gap 10.9 (5-19); Blood Urea Nitrogen 9 mg/dL (8-23); Calcium 8.3 mg/dL (8.5-10.5); Carbon Dioxide 30 mmol/L (22-29); Chloride 102 mmol/L (98-107); Creatinine Clr Calc Pharmacy 71.6203; Glucose 80 mg/dL (65-115); Osmolality Calculated 283 mOsm/kg (285-295); Potassium 3.9 mmol/L (3.5-5.1); Sodium 139 mmol/L (136-145)
[2019-12-21] MEDS: sodium chloride 0.9% 1,000 ML 75 ML IV (11:03)
--- NOTE | 2019-12-21 11:31 | PC.CHAP ---
Pastoral Care Encounter/Spiritual Assessment Type of Contact [] Declined segmental paving supervisor visit [] Patient/Family/Request visit [] Outpatient visit [X] Follow-up visit [] Physician referral [] Code/Alert [X] Routine visit [] Staff referral [] Actively dying [] Patient sleeping [] Family support [] [] Out of room [] Palliative care [] [] Receiving care in room [] Pre-surgical visit [] Trauma [] Long length of stay [] ICU visit [] Other: Relational/Emotional Strength [] Patient feels connected with others/family/visitors/staff [] Distress [] Loneliness/isolation [] Abandonment Spirituality of Patient [] Person of Stefanie [] Attends Uatsdin of their Stefanie [] Believes in Prayer [] Reads Bible or Baptism materials [] There are Spiritual issues to be addressed Pepper Picker Interventions [X] Prayer [] Active listening [] Non-anxious presence [] Spiritual/emotional support [] Crisis/trauma care [] Spiritual counseling [] Bereavement support [] Provided bereavement packet [] Provided Bible/devotional materials [] Provided toy/stuffed animal, coloring book to patient or family member [] Provided Communion [] Anointing/Waterman [] Salvation [] Completed spiritual assessment [] Other: Impact on Illness or Injury [] Angry [] Fearful [] Anxious [] Often cries [] Exhaustion [] Unable to work [] Unable to attend rastafari [] Unable to walk/stand [] Unable to read [] Unable to drive [] Unable to eat/drink [] Unable to sleep [] Unable to be with family [] Patient intubated [] Other: Summary: Extremely difficult to communicate with patient, but he seemed to be accepting of my offer to pray. Offered prayer. Time spent with patient: < 5mins
--- NOTE | 2019-12-21 11:33 | DCPLANNER ---
Updated IM and explained IM to Spouse; Isis via the phone. Copy left at bedside as agreed.
--- NOTE | 2019-12-21 13:01 | PM.PN ---
Subjective Subjective: Interval history: Today he had an episode of aspiration with speech therapy. During my visit she is awake, alert, denies any pain or discomfort. With a aphasia communication is impaired, however, is able to tell me his name, knows he is in the hospital and that he had a stroke. Does not remember the year. Is generally weak, but does follow some basic commands. Vitals/I&O/Wt Last Vital Signs Temp 98.7 F 12/21/19 12:00 Pulse 73 12/21/19 12:00 Resp 20 H 12/21/19 12:00 BP 166/82 12/21/19 12:00 Pulse Ox 96 12/21/19 12:00 12/20/19 12/21/19 12/21/19 22:59 06:59 14:59 Intake Total 1201.25 / 2301.25 972.5 / 972.5 Output Total 2 / Balance 1201.25 / 2299.25 970.5 / 970.5 Weight last 48 hrs Weight 63.049 kg Weight 62.505 kg Physical Exam Const: COMMON NORMALS: no acute distress and alert GENERAL APPEARANCE: frail appearing ORIENTATION/CONSCIOUSNESS: Yes Other orientation findings (Answers simple questions, although with delay. Follows some simple commands. This appears to be worse than his baseline dementia.) HENMT: COMMON NORMALS: oropharynx normal HEAD & SCALP: other (Facial droop) Neck/C-Spine: COMMON NORMALS: no meningeal signs and no JVD Resp: COMMON NORMALS: normal respiratory effort and clear to auscultation bilaterally AUSCULTATION: clear to auscultation bilaterally and rhonchi Cardio: COMMON NORMALS: no JVD, regular rhythm, S1 normal heart sound present, S2 normal heart sound present and No murmurs present (Cardio) RHYTHM: regular rhythm HEART SOUNDS: S1 normal heart sound present and S2 normal heart sound present GI: COMMON NORMALS: Normal to inspection, nondistended, normoactive bowel sounds present, Soft to palpation and non-tender PALPATION: Yes Soft to palpation Extremity: COMMON NORMALS: no joint enlargement and no pedal edema Neuro: COMMON NORMALS: moves all extremities SENSORIUM/ORIENTATION: Yes alert MENINGEAL SIGNS: Yes no meningeal signs CRANIAL NERVES: Yes other (R side facial droop ) COORDINATION/BALANCE: No [id number] test normal (poorly following commands) SPEECH: abnormal speech Details: garbled and slurred GAIT: Yes Unable to assess gait SENSORY EXAM: Yes other (He did not participate well enough for this exam.) MOTOR EXAM: Other motor observations present (He is generally weak, but did make effort against gravity with his arms. Moved his feet.) COORDINATION: [id number] test abnormal (poorly following commands) Skin: COMMON NORMALS: no rashes or lesions noted GENERAL SKIN EXAM: no rashes or lesions noted OTHER: Shallow wounds on bilateral hips Data : 12/21/19 03:31 12/21/19 03:31 Micro: Microbiology 12/18/19 13:57 Urine Culture - Final Urine Catheterized Proteus mirabilis 12/18/19 13:57 Urine Culture - Final Urine,Clean Catch Proteus mirabilis A&P Assessment and plan (1) Cerebrovascular accident: Today noted significant episode of aspiration, although at this time still saturating on room air. Requires continued monitoring. Requires reassessment by speech therapy to determine whether a safe oral intake regimen can in fact be established. Could not reach his for an update today. Left message with daughter who says will let her know to call us back. Remains an elevated risk of aspiration. Added some nutritional shakes due to concern he may not sustain his nutritional needs. CT of the head repeated last night, started on aspirin. Plavix. Statin due to concern for atheroemboli due to plaque. He is not a candidate for vascular surgery. So far have not seen atrial fibrillation. If mental has remained stable, and oral intake continue, may be able to discharge to [facility]. Echocardiogram with EF of about 47%. Does not appear to have significant valvular abnormality. With the degree of dysphagia, and mental status changes I am not sure that SUN would be a safe test to perform this time. May be considered on follow-up with neurology in office with regards to further evaluation/work-up. Status: Acute Qualifiers: CVA mechanism: unspecified Qualified Code(s): I63.9 - Cerebral infarction, unspecified (2) Acute UTI: Proteus mirabilis. Continue Rocephin for now. Status: Acute Additional A&P Information Hypokalemia: Mild. Requested replacement. History of seizure: Continue Keppra, transitioned to IV for the time being. Other chronic medical conditions: Number of his chronic medications are still held until he can safely establish oral intake. Bedbound/wheelchair bound at baseline Chronic aphasia HTN HLD Reported AAA BPH Depression Attestations Medical Necessity Statement*: Continue admission for assessment following CVA, severe dysphagia, speech therapy reassessment to help determine ability for oral intake and goals of care. Due to unreliable oral intake, for now requiring continuation of IV antibiotic for UTI. Coding Level of Care Code Acute Offset Second Press Operator for Douglas Marcelino Diagnoses Cerebrovascular accident I63.9 CVA mechanism: unspecified Acute UTI N39.0
[2019-12-21] MEDS: cefTRIAXone 1,000 MG in sodium chloride 0.9% (plus) 50 ML 100 MG IV (14:32)
[2019-12-21] MEDS: ondansetron 2 mg/ML SDV 2 mL 4 MG IVP (16:45)
--- NOTE | 2019-12-21 16:54 | ECG_ITS ---
[facility] Test Date: 2019-12-21 Pat Name: Vicente Horta Department: Room: 276 Gender: Male Hotel Server: : 1945 Requested By: Mark Espinosa Order Number: [id number] Kelsey MD: Husam Giron M.D. Measurements Intervals [place] Rate: 107 P: 65 WA: 182 QRS: 5 QRSD: 77 T: 85 QT: 324 QTc: 433 Interpretive Statements SINUS TACHYCARDIA LEFT VENTRICULAR HYPERTROPHY AND ST-T CHANGE [VOLTAGE CRITERIA PLUS ST/T ABNORMALITY] Some nonspecific T wave changes Compared to ECG 12/18/2019 18:15:00 Left ventricular hypertrophy now present ST (T wave) deviation now present Sinus rhythm no longer present T-wave abnormality no longer present Electronically Signed On 12-22-2019 9:42:14 CDT by Husam Giron M.D. [email or web address] medical centerQcept [email or web address] health [email or web address].[email or web address]/[id number]
[2019-12-21] MEDS: labetalol 5 mg/mL SDV 20mL 10 MG IVP (17:08)
[2019-12-21] MEDS: clopidogrel 75 mg Tablet PO (20:29)
[2019-12-21] MEDS: atorvastatin 40 mg Tablet PO (20:29)
[2019-12-22] VITALS (8 sets, daily range): BP systolic 108–148; BP diastolic 72–100; PULSE 78–97; RESP 16–20; TEMP 36.8–37.7; O2SAT 90–97
[2019-12-22] MEDS: sodium chloride 0.9% 1,000 ML 75 ML IV ×2 (00:56→13:17)
[2019-12-22 04:10] LABS: Basophils % 0.3 %; Eosinophils # 0.1 10^3/uL (0.0-0.8); Eosinophils % 0.6 %; Hematocrit 39.8 % (42.0-52.0); Hemoglobin 12.4 g/dL (11.7-16.6); Lymphocytes # 1.7 10^3/uL (0.8-4.8); Lymphocytes % 16.2 %; Mean Corpuscular HGB Conc 31.2 g/dL (30.0-36.0); Mean Corpuscular Hemoglobin 27.4 pg (28.0-34.0); Mean Corpuscular Volume 87.9 fL (80-94); Mean Platelet Volume 9.2 fL (7.4-10.4); Monocytes # 0.9 10^3/uL (0.2-0.9); Monocytes % 8.9 %; Neutrophils # 7.55 10^3/uL (1.8-7.7); Neutrophils % 73.7 %; Nucleated Red Blood Cells % 0 %; Platelet Count 236 10^3/cmm (130-400); Red Blood Count 4.53 10^6/uL (4.1-5.3); Red Cell Distribution Width 13.2 % (12.1-15.1); White Blood Count 10.2 10^3/uL (4.0-10.0)
[2019-12-22 04:31] LABS: Anion Gap 16.9 (5-19); Blood Urea Nitrogen 10 mg/dL (8-23); Calcium 8.5 mg/dL (8.5-10.5); Carbon Dioxide 28 mmol/L (22-29); Chloride 101 mmol/L (98-107); Glucose 97 mg/dL (65-115); Osmolality Calculated 290 mOsm/kg (285-295); Potassium 3.9 mmol/L (3.5-5.1); Sodium 142 mmol/L (136-145)
[2019-12-22] MEDS: aspirin 300 mg Supp PR (09:18)
--- NOTE | 2019-12-22 12:12 | PC.SLP ---
Two attempts have been made to reassess patient for his swallowing function. Both times, the patient was soundly asleep and could not be awakened.
--- NOTE | 2019-12-22 13:10 | PC.NURSE ---
rcvd call from patient's requesting update.
[2019-12-22] MEDS: cefTRIAXone 1,000 MG in sodium chloride 0.9% (plus) 50 ML 100 MG IV (13:16)
--- NOTE | 2019-12-22 20:29 | PM.PN ---
Subjective Subjective: Interval history: Chart reviewed, scrunched up at the upper half of the bed, tries to track me around the room but otherwise non-communicative during my encounter. Per nursing report had another episode of aspiration today, will need reevaluation by speech therapy tomorrow. Hemodynamically stable, afebrile, on room air. Medications: Reviewed: Yes Medication Review Details: Active Medications Generic Name Dose Route Start Last Admin Trade Name Freq PRN Reason Stop Dose Admin Aspirin 300 mg 12/22/19 09:00 12/22/19 09:18 Aspirin IN 300 mg DAILY KELLIE Administration Atorvastatin Calci um 40 mg 12/19/19 21:00 12/22/19 19:23 Lipitor PO Not Given BEDTIME KELLIE Bisacodyl 10 mg 12/19/19 22:11 Bisac-Evac IN DAILY PRN Constipation Clopidogrel Bisulf ate 75 mg 12/19/19 20:30 12/22/19 19:23 Plavix PO Not Given Q24H KELLIE Sodium Chloride 1,000 mls @ 75 ml s/hr 12/18/19 16:45 12/22/19 13:17 Sodium Chloride 0.9% IV 75 mls/hr .[id number] KELLIE Administration Levetiracetam 500 mg/ Sodium 105 mls @ 420 mls /hr 12/18/19 17:15 12/22/19 16:58 Chloride IV 420 mls/hr Q12H KELLIE Administration Ceftriaxone Sodium 1,000 mg/ 50 mls @ 100 mls/ hr 12/19/19 14:30 12/22/19 13:16 Sodium Chloride IV 100 mls/hr Q24H KELLIE Administration Protocol Ondansetron HCl 4 mg 12/18/19 16:45 12/21/19 16:45 Zofran IVP 4 mg Q6H PRN Administration NAUSEA AND VOMITI NG galantamine Allergy (Verified 12/18/19 14:59) Unknown Vitals/I&O/Wt Last Vital Signs Temp 98.4 F 12/22/19 19:39 Pulse 86 12/22/19 19:39 Resp 17 12/22/19 19:39 BP 139/88 12/22/19 19:39 Pulse Ox 90 12/22/19 19:39 12/22/19 12/22/19 12/22/19 06:59 14:59 22:59 Intake Total 1105 / 2232.5 926.25 / 926.25 Balance 1105 / 2230.5 926.25 / 926.25 Weight last 48 hrs Weight 60.101 kg Weight 63.049 kg Physical Exam Const: COMMON NORMALS: no acute distress and alert GENERAL APPEARANCE: cooperative, comfortable, frail appearing and appears older than stated age NUTRITIONAL APPEARANCE: thin ORIENTATION/CONSCIOUSNESS: Yes awake HENMT: COMMON NORMALS: normocephalic, atraumatic, hearing grossly normal bilaterally and moist oral mucous membranes HEAD & SCALP: normocephalic and atraumatic OTHER: -noted horizontal nystagmus Eye: COMMON NORMALS: Equal, round and reactive pupils present, EOMs intact bilaterally and conjunctivae normal CONJUNCTIVA: Yes conjunctivae normal PUPIL: Yes Equal, round and reactive pupils present Neck/C-Spine: GENERAL: Yes normal visual inspection and Yes trachea midline Resp: COMMON NORMALS: normal respiratory effort, No retractions, No use of accessory muscles and clear to auscultation bilaterally EFFORT & INSPECTION: Yes symmetric chest movement AUSCULTATION: clear to auscultation bilaterally OTHER: -on RA Cardio: COMMON NORMALS: regular rate, regular rhythm, S1 normal heart sound present, S2 normal heart sound present and No murmurs present (Cardio) RATE: regular rate RHYTHM: regular rhythm HEART SOUNDS: S1 normal heart sound present and S2 normal heart sound present GI: COMMON NORMALS: Normal to inspection, nondistended, normoactive bowel sounds present, Soft to palpation and non-tender PALPATION: Yes Soft to palpation Extremity: COMMON NORMALS: no clubbing, cyanosis or edema and no pedal edema NARRATIVE EXTREMITY EXAM: -unable to determine movement of extremities as laying in position in bed Neuro: SENSORIUM/ORIENTATION: Yes alert SPEECH: expressive aphasia OTHER: -Unable to determine strength or range of motion of extremities due to position Psych: SPEECH: Yes Other speech symptoms (Aphasic) MOOD & AFFECT: Yes Flat affect present Skin: COMMON NORMALS: no jaundice, no petechiae and no mottling NARRATIVE SKIN EXAM: -seborrheic dermatitis on face Data : 12/22/19 03:57 12/22/19 03:57 A&P Assessment and plan (1) Cerebrovascular accident: -Imaging reviewed including CT head, CTA of the head and neck -Echo limited with ejection fraction of 47%, grade 1 diastolic dysfunction, trace TR -Currently hemodynamically stable, continue to monitor vital signs -Telemetry monitoring -Noted to have at least 2 episodes of overt aspiration including once today, will request reevaluation by speech therapy -On presentation was not considered an appropriate candidate for tPA -on ASA, Plavix, statin -will require outpatient Neurology evaluation -strict fall precautions, limited mobility at baseline, essentially bedbound/wheelchair bound -grossly aphasic Status: Acute Qualifiers: CVA mechanism: unspecified Qualified Code(s): I63.9 - Cerebral infarction, unspecified (2) Acute UTI: -UA indicative of infection -Urine culture grew Proteus mirabilis -On ceftriaxone Status: Acute Additional A&P Information -BPH -reported hx of AAA -HTN; normotensive -Hyperlipidemia; on statin -Depression -Dispo: return to [facility] -Code status: DNR/DNI Attestations Medical Necessity Statement*: Patient requires hospitalization for continued post CVA care with continued concern for aspiration and limited oral intake requiring re-evaluation of dysphagia. Time Spent in Patient Care: Greater than 35 minutes (>than 50% of time spent in counselling and/or direct pt care on unit). Coding Level of Care Code Acute Paraffin Machine Operator for Darrylg Fwd Diagnoses Cerebrovascular accident I63.9 CVA mechanism: unspecified Acute UTI N39.0
[2019-12-23] VITALS (7 sets, daily range): BP systolic 131–174; BP diastolic 86–128; PULSE 78–100; RESP 14–19; TEMP 36.4–36.8; O2SAT 94–97
[2019-12-23] MEDS: sodium chloride 0.9% 1,000 ML 75 ML IV ×2 (04:23→16:44)
--- NOTE | 2019-12-23 07:37 | PC.NURSE ---
Brief changed, X1 void, repositioned patient to alleviate pressure, nods head in agreement, no facial grimace or moaning noted, SCD's in place, call light in reach.
[2019-12-23] MEDS: aspirin 300 mg Supp PR (08:50)
--- NOTE | 2019-12-23 10:15 | PC.NURSE ---
Oral care completed with aspiration precautions, tolerated well.
--- NOTE | 2019-12-23 11:41 | PC.SOCIAL ---
IMM Update Pg. 2 of IMM updated with patient. Copy provided.
--- NOTE | 2019-12-23 14:04 | P.PN_ITS ---
Subjective Subjective: Interval history: Patient remains n.p.o. due to continued risk for aspiration. Re-evaluated by speech therapy and recommended continuation of n.p.o. status due to severity of aspiration risk. Hemodynamically stable, on room air. More alert today, laying in position on his side. Incontinent. Medications: Reviewed: Yes Medication Review Details: Active Medications Generic Name Dose Route Start Last Admin Trade Name Freq PRN Reason Stop Dose Admin Aspirin 300 mg 12/22/19 09:00 12/23/19 08:50 Aspirin FL 300 mg DAILY KELLIE Administration Atorvastatin Calci um 40 mg 12/19/19 21:00 12/22/19 19:23 Lipitor PO Not Given BEDTIME KELLIE Bisacodyl 10 mg 12/19/19 22:11 Bisac-Evac FL DAILY PRN Constipation Clopidogrel Bisulf ate 75 mg 12/19/19 20:30 12/22/19 19:23 Plavix PO Not Given Q24H KELLIE Sodium Chloride 1,000 mls @ 75 ml s/hr 12/18/19 16:45 12/23/19 04:23 Sodium Chloride 0.9% IV 75 mls/hr .[id number] KELLIE Administration Levetiracetam 500 mg/ Sodium 105 mls @ 420 mls /hr 12/18/19 17:15 12/23/19 04:23 Chloride IV 420 mls/hr Q12H KELLIE Administration Ceftriaxone Sodium 1,000 mg/ 50 mls @ 100 mls/ hr 12/19/19 14:30 12/22/19 13:16 Sodium Chloride IV 100 mls/hr Q24H KELLIE Administration Protocol Ondansetron HCl 4 mg 12/18/19 16:45 12/21/19 16:45 Zofran IVP 4 mg Q6H PRN Administration NAUSEA AND VOMITI NG galantamine Allergy (Verified 12/18/19 14:59) Unknown Vitals/I&O/Wt Last Vital Signs Temp 98.3 F 12/23/19 11:22 Pulse 93 12/23/19 11:22 Resp 14 12/23/19 11:22 BP 131/88 12/23/19 11:22 Pulse Ox 96 12/23/19 07:54 12/22/19 12/23/19 12/23/19 22:59 06:59 14:59 Intake Total 105 / 1031.25 1000 / 2031.25 Balance 105 / 1030.999 Weight last 48 hrs Weight 66.678 kg Weight 60.101 kg Physical Exam Const: COMMON NORMALS: no acute distress and alert GENERAL APPEARANCE: coop erative, comfortable, frail appearing and appears older than stated age NUTRITIONAL APPEARANCE: thin ORIENTATION/CONSCIOUSNESS: Yes awake HENMT: COMMON NORMALS: normocephalic, atraumatic, hearing grossly normal bilaterally and moist oral mucous membranes HEAD & SCALP: normocephalic and atraumatic OTHER: -noted horizontal nystagmus Eye: COMMON NORMALS: Equal, round and reactive pupils present, EOMs intact bilaterally and conjunctivae normal CONJUNCTIVA: Yes conjunctivae normal PUPIL: Yes Equal, round and reactive pupils present Neck/C-Spine: GENERAL: Yes normal visual inspection and Yes trachea midline Resp: COMMON NORMALS: normal respiratory effort, No retractions, No use of accessory muscles and clear to auscultation bilaterally EFFORT & INSPECTION: Yes symmetric chest movement AUSCULTATION: clear to auscultation bilaterally OTHER: -on RA Cardio: COMMON NORMALS: regular rate, regular rhythm, S1 normal heart sound present, S2 normal heart sound present and No murmurs present (Cardio) RATE: regular rate RHYTHM: regular rhythm HEART SOUNDS: S1 normal heart sound present and S2 normal heart sound present GI: COMMON NORMALS: Normal to inspection, nondistended, normoactive bowel sounds present, Soft to palpation and non-tender PALPATION: Yes Soft to palpation Extremity: COMMON NORMALS: no clubbing, cyanosis or edema and no pedal edema NARRATIVE EXTREMITY EXAM: -unable to determine movement of extremities as laying in position in bed Neuro: SENSORIUM/ORIENTATION: Yes alert SPEECH: expressive aphasia OTHER: -Unable to determine strength or range of motion of extremities due to position Psych: SPEECH: Yes Other speech symptoms (Aphasic) MOOD & AFFECT: Yes Flat affect present Skin: COMMON NORMALS: no jaundice, no petechiae and no mottling NARRATIVE SKIN EXAM: -seborrheic dermatitis on face Data : 12/22/19 03:57 12/22/19 03:57 A&P Assessment and plan (1) Cerebrovascular accident: -Imaging reviewed including CT head, CTA of the head and neck -Echo limited with ejection fraction of 47%, grade 1 diastolic dysfunction, trace TR -Currently hemodynamically stable, continue to monitor vital signs -Telemetry monitoring -Noted to have at least 2 episodes of overt aspiration; re-evaluation by speech therapy appreciated with recommendation to continue n.p.o. status. Discussed this with and she does not want artificial nutrition including feeding tube placement -On presentation was not considered an appropriate candidate for tPA -on ASA, Plavix, statin -will require outpatient Neurology evaluation -strict fall precautions, limited mobility at baseline, essentially bedbound/wheelchair bound -grossly aphasic Status: Acute Qualifiers: CVA mechanism: unspecified Qualified Code(s): I63.9 - Cerebral infarction, unspecified (2) Acute UTI: -UA indicative of infection -Urine culture grew Proteus mirabilis -On ceftriaxone Status: Acute Additional A&P Information -BPH; incontinent but suspect some retention so will place Burns catheter -reported hx of AAA -HTN; normotensive -Hyperlipidemia; on statin -Depression -Dispo: return to [facility], per discussion with Isis, plan is for return to facility with hospice -Code status: DNR/DNI Attestations Medical Necessity Statement*: Patient requires hospitalization for continued post CVA care with noted significant dysphagia and associated aspiration risk, currently n.p.o. pending appropriate disposition. Time Spent in Patient Care: 16 - 35 minutes (>than 50% of time spent in counselling and/or direct pt care on unit) . Coding Level of Care Code Acute Rod Puller for Douglas Fwd Exam Comprehensive Diagnoses Cerebrovascular accident I63.9 CVA mechanism: unspecified Acute UTI N39.0
[2019-12-23] MEDS: cefTRIAXone 1,000 MG in sodium chloride 0.9% (plus) 50 ML 100 MG IV (14:11)
[2019-12-23 18:00] LABS: Add Urine Microscopic? YES; Bilirubin Urine Neg (NEGATIVE); Blood Urine 3+ (Negative); Glucose Urine UA Norm (Normal); Ketones Urine 2+ (Negative); Leukocyte Esterase Urine 2+ (Negative); Nitrate Urine Negative (Negative); Protein Urine Neg (Negative); Urine Appearance Turbid (CLEAR); Urine Color Yellow (Yellow); Urobilinogen Urine Norm (Negative); pH Urine 6 (5-7)
[2019-12-23 18:42] LABS: Add Urine Culture? Yes; Bacteria Urine 4+; Squamous Epithelial Cell Urine 0-4 (0-5); WBC Urine TOO NUMEROUS TO CNT /hpf (0-5)
[2019-12-23] MEDS: clopidogrel 75 mg Tablet PO (21:15)
[2019-12-23] MEDS: atorvastatin 40 mg Tablet PO (21:15)
[2019-12-24] MEDS: hyDRALAzine 20 mg/mL INJ 1 mL 10 MG IVP (00:14)
[2019-12-24 03:48] VITALS: BP 160/110; PULSE 111; RESP 16; TEMP 36.4; O2SAT 96
[2019-12-24 07:43] VITALS: BP 139/91; PULSE 103; RESP 18; TEMP 36.9; O2SAT 95
[2019-12-24] MEDS: aspirin 300 mg Supp PR (08:18)
[2019-12-24] MEDS: sodium chloride 0.9% 1,000 ML 75 ML IV (08:19)
--- NOTE | 2019-12-24 09:56 | PM.DCS ---
Discharge Providers Date of Admission: 12/18/19 14:41 Date of Discharge: December 24, 2019 Attending Provider at Admission: Mark Espinosa Attending Provider at Discharge: Quiana El MD Consults: None Primary Care Provider: Dr. Baljit Clayton Diagnoses at Discharge Discharge Diagnosis (1) Cerebrovascular accident: Status: Acute Problem details: -Imaging reviewed including CT head, CTA of the head and neck -Echo limited with ejection fraction of 47%, grade 1 diastolic dysfunction, trace TR -Currently hemodynamically stable, continue to monitor vital signs -Telemetry monitoring -Noted to have at least 2 episodes of overt aspiration; re-evaluation by speech therapy appreciated with recommendation to continue n.p.o. status. Discussed this with and she does not want artificial nutrition including feeding tube placement. Would like end of life care -On presentation was considered an appropriate candidate for tPA which he received -on ASA, Plavix, statin -strict fall precautions, limited mobility at baseline, essentially bedbound/wheelchair bound -grossly aphasic Qualifiers: CVA mechanism: unspecified Qualified Code(s): I63.9 - Cerebral infarction, unspecified (2) Acute UTI: Status: Acute Problem details: -UA indicative of infection -Urine culture grew Proteus mirabilis -On ceftriaxone Other Information Additional DC diagnoses/information: -BPH; incontinent but with noted retention so Burns catheter placed -reported hx of AAA -HTN; normotensive -Hyperlipidemia; on statin -Depression Reason for Visit Reason for Visit: STROKE ALERT Hospital Course Hospital Course: Patient was admitted to the ICU and placed on telemetry monitoring secondary to CVA. He was immediately assessed by the stroke team and received tPA. Persistent deficits were right facial droop, expressive and receptive aphasia, significant dysphagia, right facial droop overall is generally quite weak. At baseline, he is either bed or wheelchair bound. Due to persistent dysphagia ability to give oral medications has been quite limited. Following evaluation by speech therapy recommendation has been made to continue n.p.o. status due to significant aspiration risk and witnessed episodes of choking with oral intake. Once 24 hours post tPA he was transferred to the medical surgical floor for continued care. He has continued to be quite weak and a phasic. Work-up has been done as noted above. He was noted to be incontinent of urine with some degree of retention so Burns catheter has been placed. Initial urinalysis was consistent with infection so he has been covered with empiric ceftriaxone. Repeat UA done yesterday shows evidence of persistent infection. However in light of his overall limited recovery particularly in terms of swallowing ability, goals of care discussion was had with his including offering artificial means of nutrition as patient has been n.p.o. for about 24 to 36 hours. has made decision to transition patient to end-of-life care and have him return to [facility]. Burns catheter is to remain in place on discharge, he has not required supplemental oxygen support though this can be initiated as needed for patient comfort. Routine medications will be discontinued and he will be discharged on comfort meds including morphine, Ativan and atropine as needed. Discharge Summary: -Patient to follow-up with his primary care provider per SNF Physical Exam Const: COMMON NORMALS: no acute distress and alert GENERAL APPEARANCE: cooperative, comfortable, frail appearing and appears older than stated age NUTRITIONAL APPEARANCE: thin ORIENTATION/CONSCIOUSNESS: Yes awake HENMT: COMMON NORMALS: normocephalic, atraumatic, hearing grossly normal bilaterally and moist oral mucous membranes HEAD & SCALP: normocephalic and atraumatic OTHER: -noted horizontal nystagmus Eye: COMMON NORMALS: Equal, round and reactive pupils present, EOMs intact bilaterally and conjunctivae normal CONJUNCTIVA: Yes conjunctivae normal PUPIL: Yes Equal, round and reactive pupils present Neck/C-Spine: GENERAL: Yes normal visual inspection and Yes trachea midline Resp: COMMON NORMALS: normal respiratory effort, No retractions, No use of accessory muscles and clear to auscultation bilaterally EFFORT & INSPECTION: Yes symmetric chest movement AUSCULTATION: clear to auscultation bilaterally OTHER: -on RA Cardio: COMMON NORMALS: regular rate, regular rhythm, S1 normal heart sound present, S2 normal heart sound present and No murmurs present (Cardio) RATE: regular rate RHYTHM: regular rhythm HEART SOUNDS: S1 normal heart sound present and S2 normal heart sound present GI: COMMON NORMALS: Normal to inspection, nondistended, normoactive bowel sounds present, Soft to palpation and non-tender PALPATION: Yes Soft to palpation Extremity: COMMON NORMALS: no clubbing, cyanosis or edema and no pedal edema NARRATIVE EXTREMITY EXAM: -unable to determine movement of extremities as laying in position in bed Neuro: SENSORIUM/ORIENTATION: Yes alert SPEECH: expressive aphasia OTHER: -Unable to determine strength or range of motion of extremities due to position Psych: SPEECH: Yes Other speech symptoms (Aphasic) MOOD & AFFECT: Yes Flat affect present Skin: COMMON NORMALS: no jaundice, no petechiae and no mottling NARRATIVE SKIN EXAM: -seborrheic dermatitis on face Urinary Catheter Management^: Burns: Cath Placed During This Visit: yes Reason for Continuing Indwelling Catheter: Hospice/Comfort/Palliative Care Urinary Catheter Date of Insertion: 12/23/19 Urinary Catheter Time of Insertion: 17:14 Discharge Data Data Completed and Pending: Completed Studies During Hospitalization Category Date Time Status CT angio headneck * 60744/74498 Urge nt Cat Scan 12/18/19 12:[address] head wo con* 7 0450 Stat Cat Scan 12/18/19 12:[address] head wo con* 7 0450 Urgent Cat Scan 12/19/19 17:46 Completed XR chest 1V cici ble [id number] Stat Exams 12/18/19 12:55 Completed CV echo complete* [id number] Routine Ultrasound 12/19/19 07:00 Completed Pending at discharge Category Date Time Status Urine Culture [facility] 12/23/19 17:16 Received Labs from last 24 hours 12/23/19 17:16 Urine Color Yellow Urine Appearance Turbid Urine pH 6 Ur Specific Gravit y 1.010 Urine Protein Neg Urine Glucose (UA) Norm Urine Ketones 2+ H Urine Blood 3+ H Urine Nitrate Negative Urine Bilirubin Neg Urine Urobilinogen Norm Ur Leukocyte Sandy ase 2+ H Urine RBC 5-10 H Urine WBC Too numerous to c nt H Ur Squamous Epith Cells 0-4 H Amorphous Sediment Not Reportable Urine Bacteria 4+ H Vitals: Last Vital Signs Temp 98.5 F 12/24/19 07:43 Pulse 103 H 12/24/19 07:43 Resp 18 12/24/19 07:43 BP 139/91 12/24/19 07:43 Pulse Ox 95 12/24/19 07:43 Discharge Plan Discharge Patient Disposition: Xfer SNF Condition: Stable Prescriptions: New lorazepam 2 mg/mL concentrate 2 mg PO Q4H PRN (Reason: agitation) 1 Days Qty: 30 RF: 0 morphine 10 mg/5 mL solution 2.5 mg PO Q2H PRN (Reason: dyspnea or pain) Qty: 100 RF: 0 atropine 1 % drops 4 drop SUBLINGUAL Q1H PRN (Reason: secretions) Qty: 5 RF: 0 Continued Tylenol 325 mg Tablet 650 mg PO Q4H PRN (Reason: Pain) RF: 0 Discontinued clonidine 0.1 mg/24 hr Patch Weekly 1 patch transdermal Q7D RF: 0 Keppra 500 mg Tablet 500 mg PO BID RF: 0 Aspir-81 81 mg Tablet,Delayed Release (Dr/Ec) 81 mg PO DAILY RF: 0 Tylenol Arthritis Pain 650 mg Tablet Extended Release 1,300 mg PO BEDTIME RF: 0 cyproheptadine 4 mg Tablet 2 mg PO BID RF: 0 methocarbamol 750 mg Tablet 750 mg PO BID RF: 0 Milk of Magnesia 400 mg/5 mL Suspension 30 ml PO DAILY PRN (Reason: Constipation) RF: 0 Flomax 0.4 mg Capsule 0.4 mg PO DAILY RF: 0 bisacodyl 10 mg Suppository 10 mg IN DAILY PRN (Reason: Constipation) RF: 0 sertraline 50 mg Tablet 100 mg PO QAM RF: 0 memantine 5 mg Tablet 5 mg PO DAILY RF: 0 Med Plus See Rx Instructions .ROUTE .COMPLEX RF: 0 Pyridium 1 tab PO BID RF: 0 Discharge Orders: Discharge Order (Routine); Ordered 12/24/19 Ordered By: Quiana El Referrals: Yissel Alcantar [Outside] Baljit Clayton [Referring] - 4-7 days (Post hospital discharge follow up. ) Discharge Diet: As Directed Discharge Activity: Bedrest Activity Restrictions/Additional Instructions: -Patient has a Burns catheter in place due to being on end of life care. Please keep it in place and maintain good lela-care -Can use supplemental oxygen support as needed for patient comfort -Patient is at high risk for falls so please continue fall precautions -Patient is at high risk for aspiration but can have pleasure feeds as tolerated due to being on end of life care Discharge Attestations Time Spent in Discharge Care*: greater than 30 min Specific Discharge Activities: Specific discharge activities: educating and/or supporting family/caregiver, discussing with employment case manager/social workers/dc planners, documenting/other paperwork and evaluating patient/reviewing data Status at Discharge: Behavioral status at discharge: dependent in ADL's, Functional status at discharge: bed bound Overall status at discharge: patient has a new baseline Quality Metrics Clinical Quality Measures During this hospital stay, did patient experience: Stroke Contraindication to Antithrombotic: Antithrombotic prescribed (Received tPA) Contraindication to Anticoagulation: Anticoagulation prescribed Contraindication to Statin: Statin prescribed Contraindication to tPA: tPA given Coding Level of Care Code Acute Biological Engineer for g Fwd Exam Comprehensive Diagnoses Cerebrovascular accident I63.9 CVA mechanism: unspecified Acute UTI N39.0
--- NOTE | 2019-12-24 10:54 | PC.NURSE ---
Patients , Isis, notified of transfer back to [facility], verbalized understanding.
--- NOTE | 2019-12-24 12:28 | PC.NURSE ---
Report given to nurse at [facility], denies further questions or concerns.
[2019-12-24 13:51] VITALS: BP 139/91; PULSE 103; RESP 18; TEMP 36.9; O2SAT 95
== END 2019-12-24 13:52 | disposition skilled nursing facility (03) | DRG 62 ==
LOC: ER 14:58 → ICU 15:01 → MEDSURG 12-19 21:22
PROVIDERS: Emergency Medicine; Admitting Provider Internal Medicine; Visit Provider Family Medicine
DX: I63.9 Cerebral infarction, unspecified (principal); N39.0 Urinary tract infection, site not specified; G30.9 Alzheimer's disease, unspecified; I71.4 Abdominal aortic aneurysm, without rupture; E78.5 Hyperlipidemia, unspecified; F32.9 Major depressive disorder, single episode, unspecified; N40.1 Benign prostatic hyperplasia with lower urinary tract symptoms; R33.8 Other retention of urine; I10 Essential (primary) hypertension; B96.4 Proteus (mirabilis) (morganii) as the cause of diseases classified elsewhere; F02.80 Dementia in other diseases classified elsewhere, unspecified severity, without behavioral disturbance, psychotic disturbance, mood disturbance, and anxiety; Z87.891 Personal history of nicotine dependence; R29.709 NIHSS score 9; Z86.73 Personal history of transient ischemic attack (TIA), and cerebral infarction without residual deficits; R47.01 Aphasia; Z74.01 Bed confinement status; Z99.3 Dependence on wheelchair
CPT/HCPCS: 12345; 36415; 36416; 51702; 70450; 70496; 70498; 71045; 80048; 80053; 81001; 82962; 83036; 83735; 84484; 85025; 85610; 85730; 87077; 87086; 87186; 92507; 92523; 92526; 92610; 93005; 93306; 94664; 96375; 99284; J0360; J0696; J1953; J2405; J2997; J3480; J3490; J7030; Q9967